=== PATIENT | female | born 1955 | race Caucasian/White ===

== ENCOUNTER 2018-09-18 08:28 | Day surgery (SDC) | payer OTHER ==
[~2018-09-18] VITALS: Ht 157.5 cm; Wt 72.7 kg
[~2018-09-18 08:28] MED LIST: ACTONEL150 MG PO; AMITRIPTYLINE H10 M1 PO; AMITRIPTYLINE10 MG PO; BENADRYL25 M2 PO; L-LYSINE500 MG; LIPITOR20 MG PO; NAPROSYN500 MG PO; PRIL40 PO; PRILOSEC 20MG20 MG PO; ZANTAC 150MG T150 MG PO
[2018-09-18] MEDS ORDERED: AMITRIPTYLINE H25 M1 PO (08:46)
[2018-09-18] MEDS ORDERED: ZOVIRAX400 MG PO (08:48)
[2018-09-18] MEDS ORDERED: LIQUIFILM TEARS15 ML OU (08:49)
[2018-09-18] MEDS ORDERED: XANAX 0.5MG0.5 MG PO (08:50)
[2018-09-18] MEDS ORDERED: MULTIPLE VITAMI1 TA5 PO (08:51)
[2018-09-18] MEDS ORDERED: MAG-OX 400400 MG/TAB PO (08:51)
[2018-09-18 09:03] VITALS: BP 127/89; PULSE 84; TEMP 97.4
[2018-09-18 10:10] VITALS: BP 122/84; PULSE 62; TEMP 97.8
--- NOTE | 2018-09-18 10:10 | NUR ---
PATIENT ARRIVES VIA CART FROM OR. VS STARTED. AT BEDSIDE. DENIES NAUSEA OR PAIN. CALL LIGHT IS WITHIN REACH. RESPIRATIONS EVEN AND UNLABORED. HEART SOUNDS NSR. ALERT AND ORIENTED X 4. BOWELS SOUNDS AUDIBLE. WILL CONTINUE TO MONITOR.
[2018-09-18 10:25] VITALS: BP 124/80; PULSE 62
[2018-09-18 10:40] VITALS: BP 126/82; PULSE 68; TEMP 98
[2018-09-18 11:15] VITALS: BP 126/82; PULSE 68; TEMP 97.9
--- NOTE | 2018-09-18 11:30 | NUR ---
DISCHARGE INSTRUCTIONS GIVEN TO PATIENT AND . VERBALIZED UNDERSTANDING. ALL QUESTIONS ANSWERED AND PATIENT DISCHARGED TO HOME WITH . AMBULATED WITH STEADY GAIT TO ELEVATOR.
== END 2018-09-18 11:15 | disposition home or self-care (01) ==
LOC: SDCO 08:28
DX: K92.1 Melena (principal); K21.9 Gastro-esophageal reflux disease without esophagitis; Z83.71 Family history of colonic polyps; Z80.0 Family history of malignant neoplasm of digestive organs; Z84.89 Family history of other specified conditions; Z85.3 Personal history of malignant neoplasm of breast; Z98.890 Other specified postprocedural states; K59.00 Constipation, unspecified; R12 Heartburn; Z87.891 Personal history of nicotine dependence
CPT/HCPCS: J2250; J3010; J7030